=== PATIENT | male | born 1965 | race Caucasian/White ===

== ENCOUNTER 2020-11-11 16:46 | Inpatient (IN) ==
[2020-11-11] MEDS ORDERED: Isovue-370 500 ML BOTTLE IVP ONE (19:20)
[2020-11-11] MEDS ORDERED: Ipratropium/Albuterol Neb 3 ML IH PRN (19:21)
[2020-11-11] MEDS ORDERED: predniSONE 20 MG TABLET PO ONE (19:22)
[2020-11-11 19:34] LABS: Basophils # 0.1 K/mcL (0.0-0.2); Basophils % 0.5 %; Eosinophils # 0.4 K/mcL (0.0-0.6); Eosinophils % 3.2 %; Hematocrit 28.1 % (37.5-50.1); Hemoglobin 9.1 g/dL (12.9-16.9); Immature Granulocytes % 1.1 % (0-4); Lymphocytes % 8.9 %; Mean Corpuscular HGB Conc 32.4 g/dL (31.6-35.5); Mean Corpuscular Hemoglobin 30.7 pg (28.0-33.3); Mean Corpuscular Volume 94.9 fL (83.0-100.0); Mean Platelet Volume 10.9 fL (9.4-12.4); Monocytes # 0.9 K/mcL (0.0-1.3); Monocytes % 7.8 %; Neutrophils # 8.7 K/mcL (1.6-8.9); Platelet Count 323 K/mcL (140-400); Red Blood Count 2.96 M/mcL (4.19-5.50); Red Cell Distribution Width 13.1 % (11.5-14.5); Segmented Neutrophils % 78.5 %; White Blood Count 11.1 K/mcL (4.3-11.1)
[2020-11-11 20:08] LABS: INR 1.4
[2020-11-11 20:10] LABS: Activated Partial Thrombo Time 29.3 Seconds (26.0-36.0)
[2020-11-11 20:16] LABS: Alanine Aminotransferase 50 Units/L (7-52); Albumin 2.7 g/dL (3.5-5.7); Albumin/Globulin Ratio 1.2 (1.1-2.2); Alkaline Phosphatase 146 Units/L (34-104); Aspartate Amino Transferase 30 Units/L (13-39); BUN/Creatinine Ratio 24 (6-26); Bilirubin,Direct 0.3 mg/dL (0.0-0.2); Bilirubin,Indirect 0.4 mg/dL (0.0-1.0); Bilirubin,Total 0.7 mg/dL (0.3-1.0); Blood Urea Nitrogen 28 mg/dL (6-20); Calcium 7.9 mg/dL (8.6-10.3); Carbon Dioxide 17 mEq/L (23-29); Chloride 102 mEq/L (98-107); Globulin 2.3 g/dL (2.4-3.5); Glucose 187 mg/dL (70-105); Osmolality,Calculated 284 (280-300); Sodium 132 mEq/L (136-145); Troponin I 1.31 ng/mL (< 0.04); eGFR For African Americans > 60 (> 60); eGFR For Non-African Americans > 60 (> 60)
[2020-11-11] MEDS ORDERED: 0.9 % Sodium Chloride 1,000 ML IV ONE (21:56)
[2020-11-11] MEDS ORDERED: *HR* Heparin 5,000 UNIT/ML VIAL IVP ONE (21:56)
[2020-11-11] MEDS ORDERED: cefTRIAXone 2,000 MG in Water for inj. (sterile) 20 ML IVP ONE (21:56)
[2020-11-11] MEDS ORDERED: *HR* Promethazine 25 MG/ML VIAL IM PRN (22:26)
[2020-11-11] MEDS ORDERED: *HR* HYDROcodone/Acet 5/325 mg TABLET PO PRN (22:26)
[2020-11-11] MEDS ORDERED: Ondansetron 4 MG/2 ML VIAL IVP PRN (22:26)
[2020-11-11] MEDS ORDERED: Acetaminophen 325 MG TABLET PO PRN (22:26)
[2020-11-11] MEDS ORDERED: Naloxone 0.4 MG/ML INJ IVP PRN (22:26)
[2020-11-11] MEDS ORDERED: Melatonin 3 MG TABLET PO PRN (22:26)
[2020-11-11] MEDS ORDERED: Perflutren Lipid Microsphere 1.3 ML in 0.9 % Sodium Chloride 8.7 ML IVP PRN (22:28)
[2020-11-11] MEDS ORDERED: Ringers Solution, Lactated 500 ML IVC ONE (22:30)
[2020-11-11] MEDS ORDERED: Ringers Solution, Lactated 1,000 ML IVC SCH (22:30)
[2020-11-11] MEDS ORDERED: *HR* Heparin 5,000 UNIT/ML VIAL IVP PRN ×2 (22:59)
[2020-11-11] MEDS ORDERED: Heparin 25,000UNIT/250ML 1/2NS 25,000 UNIT/250 ML IV.SOLN IVC SCH (23:00)
[2020-11-11] MEDS ORDERED: Vancomycin 1,250 MG/262.5 ML IV.SOLN IVPB ONE (23:00)
[2020-11-11] MEDS ORDERED: Aspirin 325 MG TABLET PO ONE (23:15)
[2020-11-11 23:30] LABS: Adenovirus Not Detected (Not Detect); Coronavirus 229E Not Detected (Not Detect); Coronavirus HKU1 Not Detected (Not Detect); Coronavirus NL63 Not Detected (Not Detect); Coronavirus OC43 Not Detected (Not Detect); Human Metapneumovirus Not Detected (Not Detect); Human Rhinovirus/Enterovirus Not Detected (Not Detect); Influenza A Subtype 2009 H1 Not Detected (Not Detect); SARS-CoV-2 Not Detected (Not Detect)
[2020-11-11 23:31] LABS: Bordetella Pertussis Not Detected (Not Detect); Chlamydophila pneumoniae Not Detected (Not Detect); Influenza B Not Detected (Not Detect); Mycoplasma pneumoniae Not Detected (Not Detect); Parainfluenza Virus 1 Not Detected (Not Detect); Parainfluenza Virus 2 Not Detected (Not Detect); Parainfluenza Virus 3 Not Detected (Not Detect); Parainfluenza Virus 4 Not Detected (Not Detect); Respiratory Syncytial Virus Not Detected (Not Detect)
[2020-11-12] MEDS ORDERED: Ringers Solution, Lactated 500 ML IVC ONE ×2 (01:00→05:59)
[2020-11-12 05:29] LABS: Basophils % 0.2 %; Eosinophils % 0.1 %; Hematocrit 25.4 % (37.5-50.1); Hemoglobin 8.3 g/dL (12.9-16.9); Immature Granulocytes % 1.3 % (0-4); Lymphocytes # 0.6 K/mcL (0.6-4.6); Lymphocytes % 3.7 %; Mean Corpuscular HGB Conc 32.7 g/dL (31.6-35.5); Mean Corpuscular Hemoglobin 31.7 pg (28.0-33.3); Mean Corpuscular Volume 96.9 fL (83.0-100.0); Mean Platelet Volume 11.2 fL (9.4-12.4); Monocytes # 0.4 K/mcL (0.0-1.3); Monocytes % 2.8 %; Neutrophils # 14.4 K/mcL (1.6-8.9); Platelet Count 324 K/mcL (140-400); Red Blood Count 2.62 M/mcL (4.19-5.50); Red Cell Distribution Width 13.2 % (11.5-14.5); Segmented Neutrophils % 91.9 %; White Blood Count 15.7 K/mcL (4.3-11.1)
[2020-11-12 05:37] LABS: INR 1.7; Prothrombin Time 19.1 Seconds (9.4-12.1)
[2020-11-12 06:15] LABS: Folate 6.2 ng/mL (3.0-16.0)
[2020-11-12 06:16] LABS: Vitamin B12 > 1500 pg/mL (250-1100)
[2020-11-12 06:17] LABS: % Iron Saturation 5 % (20-55); Alanine Aminotransferase 99 Units/L (7-52); Albumin 2.6 g/dL (3.5-5.7); Albumin/Globulin Ratio 1.2 (1.1-2.2); Alkaline Phosphatase 199 Units/L (34-104); Aspartate Amino Transferase 110 Units/L (13-39); BUN/Creatinine Ratio 29 (6-26); Bilirubin,Total 0.7 mg/dL (0.3-1.0); Blood Urea Nitrogen 34 mg/dL (6-20); C-Reactive Protein 273 mg/L (Less than 10); Calcium 7.7 mg/dL (8.6-10.3); Carbon Dioxide 11 mEq/L (23-29); Chloride 103 mEq/L (98-107); Chol/HDL Ratio 7.1 (0-4.9); Cholesterol 71 mg/dL (< 200); Ferritin > 1500 ng/mL (20-250); Globulin 2.2 g/dL (2.4-3.5); Glucose 280 mg/dL (70-105); HDL Cholesterol 10 mg/dL (40-59); Iron 11 mcg/dL (65-175); LDL Cholesterol,Calculated 44 mg/dL (< 100); Magnesium 1.8 mg/dL (1.6-2.6); Osmolality,Calculated 290 (280-300); Phosphorous 4.8 mg/dL (2.7-4.5); Potassium 4.1 mEq/L (3.5-5.1); Sodium 131 mEq/L (136-145); Total Protein 4.8 g/dL (6.4-8.9); Transferrin 171 mg/dL (203-362); Triglycerides 87 mg/dL (< 150); eGFR For African Americans > 60 (> 60); eGFR For Non-African Americans > 60 (> 60)
[2020-11-12] MEDS ORDERED: D5% in Water 1,000 ML IVC PRN (06:26)
[2020-11-12] MEDS ORDERED: Dextrose Gel 15 GM/37.5 ML TUBE PO PRN ×2 (06:26)
[2020-11-12] MEDS ORDERED: *HR* Dextrose 50 % in Water (Vial) 50 ML VIAL IVP PRN (06:26)
[2020-11-12] MEDS ORDERED: *HR* LORazepam 2 MG/ML VIAL IVP PRN ×3 (06:27)
[2020-11-12 07:02] LABS: Bilirubin,Urine Small (Negative); Blood,Urine Negative (Negative); Clarity,Urine Clear (Clear); Color,Urine Yellow (Yellow); Glucose,Urine (UA) Normal (Normal); Ketones,Urine 40 mg/dL (Negative); Leukocyte Esterase,Urine Negative (Negative); Nitrite,Urine Negative (Negative); PH,Urine 6.5 pH Units (5.0-8.0); Protein,Urine 30 mg/dL (Neg-Trace); Specific Gravity,Urine 1.015 (1.010-1.025)
[2020-11-12] MEDS ORDERED: Piperacillin/Tazobactam 3.375 GM in 0.9 % Sodium Chloride Mini Bag 100 ML IVPB SCH (08:00)
[2020-11-12 08:13] VITALS: TEMP 97.4
[2020-11-12] MEDS ORDERED: 0.9 % Sodium Chloride 1,000 ML IVC ONE (08:48)
[2020-11-12] MEDS ORDERED: Thiamine (B-1) 200 MG in 0.9 % Sodium Chloride 50 ML IVPB SCH (09:00)
[2020-11-12] MEDS ORDERED: levoFLOXacin 750 MG/150 ML 750 MG/150 ML BAG IVPB SCH (09:00)
[2020-11-12 09:49] LABS: Estimated Average Glucose 266 mg/dl; Hemoglobin A1C 10.9 %
[2020-11-12 09:58] LABS: Alanine Aminotransferase 171 Units/L (7-52); Albumin 2.5 g/dL (3.5-5.7); Albumin/Globulin Ratio 1.1 (1.1-2.2); Alkaline Phosphatase 193 Units/L (34-104); Aspartate Amino Transferase 240 Units/L (13-39); BUN/Creatinine Ratio 27 (6-26); Bilirubin,Total 0.6 mg/dL (0.3-1.0); Blood Urea Nitrogen 35 mg/dL (6-20); Calcium 7.6 mg/dL (8.6-10.3); Carbon Dioxide 12 mEq/L (23-29); Chloride 102 mEq/L (98-107); Globulin 2.2 g/dL (2.4-3.5); Glucose 295 mg/dL (70-105); Osmolality,Calculated 291 (280-300); Potassium 4.3 mEq/L (3.5-5.1); Sodium 131 mEq/L (136-145); Total Protein 4.7 g/dL (6.4-8.9); eGFR For African Americans > 60 (> 60); eGFR For Non-African Americans 57 (> 60)
[2020-11-12 10:02] LABS: Troponin I 1.33 ng/mL (< 0.04)
[2020-11-12] MEDS ORDERED: Vancomycin 1,250 MG/262.5 ML IV.SOLN IVPB SCH (12:00)
[2020-11-12] MEDS ORDERED: Insulin LISPRO 300 UNITS/3 ML VIAL SUBQ SCH ×2 (12:00)
[2020-11-12] MEDS ORDERED: Norepinephrine 4 MG/254 ML IV.SOLN IVC SCH (12:15)
[2020-11-12 12:58] LABS: VBG HCO3 11 mEq/L (21-27); VBG PCO2 27 mmHg (41-51); VBG PH 7.21 pH Units (7.32-7.42); VBG PO2 58 mmHg (25-50)
[2020-11-12 13:18] VITALS: BP 88/76; PULSE 88; O2SAT 95
[2020-11-12] MEDS ORDERED: cefTRIAXone 2,000 MG in Water for inj. (sterile) 20 ML IVP SCH (21:00)
== END 2020-11-12 13:10 | disposition short-term general hospital (02) | DRG 871 ==
LOC: 2NENU 16:46 → EMEROOARM 16:46 → 2NNU 11-12 00:15 → ICNU 11-12 01:45
PROVIDERS: ADMIT Family Medicine; ATTEND Family Medicine